=== PATIENT | male | born 1960 | race Caucasian/White ===

== ENCOUNTER → 2021-05-31 10:13 | Outpatient (CLI) | payer OTHER, SELFPAY ==
--- NOTE | ~2021-05-31 | CT_ITS ---
EXAMINATION: CTA chest EXAM DATE: 05/31/2021 11:12 INDICATION: Aortic root dilation. TECHNIQUE: Spiral CT of the chest following intravenous injection of 100 mL Omnipaque 350. Axial, co abril and sagittal images of the chest were reviewed. Maximum intensity projection 3-D reconstruction s of the aorta were created by the technologist on dedicated workstation. Coronal maximum intensity pixel images of chest reviewed. The dose-length product (DLP) for this examination was 641.25 mGy-cm . The exposure was tailored according to patient size (auto mA exposure control), and iterative joshua nstruction (ASIR) was used as additional dose reduction technique. Comparison is made to prior examin ation from 02/24/2014. FINDINGS: The ascending aorta measures 4.6 cm (was 4.0 cm), and the aortic root measures 4.5 cm (was 4.2 cm). No central pulmonary emboli. No aortic dissection. There is a right lower lobe 9 mm nodule which was not present in 2013, and the lateral sulcus. PET/CT or 3 month follow-up chest CT is recomm ended. There is elevated right hemidiaphragm with adjacent subsegmental atelectasis. There is small dissection flap or fenestration of a mildly aneurysmal superior mesenteric artery whic h measures up to 1.1 x 1.5 cm. There are no pleural or pericardial effusions. Tracheobronchial tree is patent. There is no media stinal, hilar or axillary lymphadenopathy. There is no pneumothorax. Heart normal in size. Ther e is mild coronary arterial calcification, arterial sclerosis. Several small liver cysts. There is thoracic spondylosis without osteoblastic or osteolytic lesions identified. IMPRESSION: 1. 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 2. Right lower lobe 9 mm nodule; recommend PET/CT or 3 month follow-up chest CT. I discussed unexpected finding of nodule with Jenny in the office of the ordering clinician Shay Villalba MD at 06/01/2021 09:30 CREPE BOX TENDER, stated she would give the message to him. Reviewed, dictated and finalized at location B. E BOX TENDER IMPRESSION: 1. 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 2. Right lower lobe 9 mm nodule; recommend PET/CT or 3 month follow-up chest C T. I discussed unexpected finding of nodule with Jenny in the office of the [facility] clinician Shay Villalba MD at 06/01/2021 09:30 CREPE BOX TENDER, stated she would give the message to him.
[2021-05-31 10:33] LABS: Estimated Glomerular Filt Rate > 60
== END ==
PROVIDERS: Visit Provider Internal Medicine Cardiovascular Disease
DX: I77.810 Thoracic aortic ectasia (principal)
CPT/HCPCS: 71275; Q9967

== ENCOUNTER → 2021-08-31 15:14 | Outpatient (CLI) | payer OTHER, SELFPAY ==
--- NOTE | ~2021-08-31 | CT_ITS ---
EXAMINATION:CT diagnostic chest wo con DATE: 08/31/2021 15:32 INDICATION: Solitary pulmonary nodule. TECHNIQUE: Computed tomography (CT) of the chest was performed without intravenous contrast. Automate d exposure control and iterative reconstruction technique were employed. The dose-length product (DLP ) was 118.34 mGy-cm. COMPARISON: Chest CT 05/31/2021, 02/24/14 FINDINGS: There is mild scarring at the lung apices. There is mild atelectasis bilaterally. There is mild elevation of right hemidiaphragm. There is a 9 mm nodule in right lung lower lobe. No pleural ef fusion. The heart size is normal. No pericardial effusion. There are coronary artery calcifications. There is ectasia of ascending aorta measuring 4.4 cm. There is diffuse hepatic steatosis. There is mo derate thoracic spondylosis. IMPRESSION: 1. 9 mm pulmonary nodule, stable from 05/31/2021 and new from 02/24/2014, probably benign. Noncontrast chest CT is recommended in 6 months. Reviewed, dictated and finalized at location A. IMPRESSION: 1. 9 mm pulmonary nodule, stable from 05/31/2021 and new from 02/24/2014, probabl y benign. Noncontrast chest CT is recommended in 6 months.
== END ==
PROVIDERS: PCP Internal Medicine; Visit Provider Internal Medicine
DX: R91.1 Solitary pulmonary nodule (principal)
CPT/HCPCS: 71250

== ENCOUNTER 2022-05-05 11:32 | Emergency (ER) | payer BC, SELFPAY ==
--- NOTE | ~2022-05-05 | XR_ITS ---
EXAMINATION: XR chest 2V DATE: 05/05/2022 12:50 INDICATION: Decreased lung sounds TECHNIQUE: PA and lateral views of the chest are obtained. COMPARISON: 10/27/2013 FINDINGS: The lungs are free of acute opacities. No pleural effusion or pneumothorax. The cardiomedia stinal silhouette is normal. There is mild thoracic spondylosis. IMPRESSION: 1. No acute cardiopulmonary abnormality. Reviewed, dictated and finalized at location A. ENT ACCOUNTS CLERK
[2022-05-05 11:56] VITALS: BP 105/74; PULSE 86; RESP 18; TEMP 36.8; O2SAT 99
--- NOTE | 2022-05-05 12:29 | ED.GENADULT ---
HPI - General Adult General Chief complaint: Upper Respiratory Infection Stated complaint: flu like symptoms Time Seen by Provider: 05/05/22 12:29 Source: patient Mode of arrival: ambulatory Limitations: no limitations History of Present Illness HPI narrative: 62-year-old male patient presents to the [facility] with complaints of cold symptoms for the past 4 weeks. Patient states he has had a cough, congestion, body aches, chills and feeling very tired. Patient states he thought he was getting better last week and can then continues to have symptoms this week that he feels that it is worsening. 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 Related Data Home Medications Medication Instructions Recorded Confirmed sildenafil 25 mg tablet 25 mg PO DAILY PRN 03/17/19 12/19/21 tamsulosin 0.4 mg capsule 0.4 mg PO DAILY 03/17/19 12/19/21 amlodipine 5 mg tablet 5 mg PO DAILY 08/12/20 12/19/21 fenofibrate nanocrystallized 145 tablet PO 06/05/21 12/19/21 mg tablet metoprolol succinate 50 mg 50 mg PO DAILY 06/05/21 12/19/21 tablet,extended release 24 hr Allergies Allergy/AdvReac Type Severity Reaction Status Date / Time chlorpheniramine Allergy Mild SWELL Verified 12/19/21 14:21 PROSTATE phenylephrine Allergy Mild SWELL Verified 12/19/21 14:21 PROSTATE phenylpropanolamine Allergy Mild SWELL Verified 12/19/21 14:21 PROSTATE phenyltoloxamine Allergy Mild SWELL Verified 12/19/21 14:21 PROSTATE Sulfa (Sulfonamide Allergy Mild Diarrhea Verified 12/19/21 14:21 Antibiotics) Review of Systems Review of Systems: CONSTITUTIONAL: Positive subjective fever, chills, and sweats. EYES: Denies visual changes, redness, or discharge. ENT: Denies rhinorrhea, positive congestion, denies sore throat, or otalgia. CARDIOVASCULAR: Denies chest pain, palpitations, or edema. RESPIRATORY: positive cough withdyspnea. GASTROINTESTINAL: Denies abdominal pain, nausea, vomiting, or diarrhea. GENITOURINARY: Denies dysuria or hematuria. SKIN: Denies rash or itching. MUSCULOSKELETAL: Denies back pain, joint pain, positive myalgia. NEUROLOGIC: Denies headache, numbness, or weakness. PSYCHIATRIC: Denies anxiety or depression. [facility] Past Medical History Medical History Aortic root dilation Cardiac disorder stress test 2011, echo, heart mildly enlarged, mild dyspnea only to the cardiac catheterization Cervical radiculopathy Chronic otitis externa of left ear COPD (chronic obstructive pulmonary disease) Degenerative disc disease L5 herniated, L2 through 4 bulging disc Dyslipidemia Erythrocytosis Gastroesophageal reflux disease Hypertension, benign Hypertriglyceridemia Hypogonadism in male Hypovitaminosis D Incidental lung nodule, greater than or equal to 8mm JEFF (obstructive sleep apnea) Surgical History Surgical History H/O Spinal surgery Hx of tonsillectomy Family History Family History Mother Patient's mother is in good health Father Carcinoma of colon Other Diabetes mellitus Family history of arthritis Family history of cardiovascular disease Social History Social History Smoking packs per day: 1 Smoking cigarettes per day: 20.0 Years smoked: 20 Smoking pack-years: 20.00 Smoking status: Former smoker Tobacco type: cigarettes Second hand tobacco smoke exposure: No Smoking end date: 04/01/95 Alcohol intake: current Alcohol use details: social Substance use: never Substance use type: does not use Comments At the time of my signature I agree with nursing past medical history, surgical, social, and family history. There is no relevant family history pertinent to the presenting complaint. Exam Narrative:
[2022-05-05] MEDS: ALBUTEROL SULFATE NEB 2.5 MG/3 ML INH INHALATION (13:02)
[2022-05-05] MEDS: IPRATROPIUM BR 0.02% INH SOLN 0.5 MG/2.5 ML VIAL INHALATION (13:02)
== END 2022-05-05 14:00 | disposition home or self-care (01) ==
PROVIDERS: Emergency Provider Nurse Practitioner Family; PCP Internal Medicine
DX: J40 Bronchitis, not specified as acute or chronic (principal); I10 Essential (primary) hypertension; E78.5 Hyperlipidemia, unspecified; J44.9 Chronic obstructive pulmonary disease, unspecified; Z87.891 Personal history of nicotine dependence; Z20.822 Contact with and (suspected) exposure to COVID-19
CPT/HCPCS: 71046; 87426; 94640; 99213; C9803; G0463

== ENCOUNTER 2022-06-02 14:35 | Emergency (ER) | payer BC, SELFPAY ==
[2022-06-02 14:54] VITALS: BP 115/81; PULSE 91; RESP 16; TEMP 36.6; O2SAT 97
--- NOTE | 2022-06-02 14:58 | ED.GENADULT ---
HPI - General Adult General Chief complaint: Upper Respiratory Infection Stated complaint: cough Time Seen by Provider: 06/02/22 14:58 Source: patient Mode of arrival: ambulatory Limitations: no limitations History of Present Illness HPI narrative: 62-year-old male patient presents to the [facility] with complaints of cough, body aches, chills, congestion and just overall not feeling well. Patient states he was seen here May 06 and when he was seen here on May 06 he had been sick for about 4 weeks. Patient states that they did a chest x-ray did not see any pneumonia, tested him for COVID which was negative as well as give him a breathing treatment. Patient states they were not able to send him home with an albuterol inhaler due to taking beta-blockers for his heart. Patient states that the steroids they prescribed him did help until he stopped taking them then the symptoms return. Patient states he continues to take the Tessalon Perles to help with the coughing but continues to have symptoms. Denies chest pain states does have shortness of breath at times especially when coughing. Related Data Home Medications Medication Instructions Recorded Confirmed sildenafil 25 mg tablet 25 mg PO DAILY PRN 03/17/19 12/19/21 tamsulosin 0.4 mg capsule 0.4 mg PO DAILY 03/17/19 12/19/21 amlodipine 5 mg tablet 5 mg PO DAILY 08/12/20 12/19/21 fenofibrate nanocrystallized 145 tablet PO 06/05/21 12/19/21 mg tablet metoprolol succinate 50 mg 50 mg PO DAILY 06/05/21 12/19/21 tablet,extended release 24 hr Allergies Allergy/AdvReac Type Severity Reaction Status Date / Time chlorpheniramine Allergy Mild SWELL Verified 06/02/22 14:53 PROSTATE phenylephrine Allergy Mild SWELL Verified 06/02/22 14:53 PROSTATE phenylpropanolamine Allergy Mild SWELL Verified 06/02/22 14:53 PROSTATE phenyltoloxamine Allergy Mild SWELL Verified 06/02/22 14:53 PROSTATE Sulfa (Sulfonamide Allergy Mild Diarrhea Verified 06/02/22 14:53 Antibiotics) Review of Systems Review of Systems: CONSTITUTIONAL: Denies fever, chills, or sweats. EYES: Denies visual changes, redness, or discharge. ENT: Positive rhinorrhea, congestion, sore throat, or otalgia. CARDIOVASCULAR: Denies chest pain, palpitations, or edema. RESPIRATORY: positive cough , intermittent dyspnea. GASTROINTESTINAL: Denies abdominal pain, nausea, vomiting, or diarrhea. GENITOURINARY: Denies dysuria or hematuria. SKIN: Denies rash or itching. MUSCULOSKELETAL: Denies back pain, joint pain, or myalgia. NEUROLOGIC: Denies headache, numbness, or weakness. PSYCHIATRIC: Denies anxiety or depression. [facility] Past Medical History Medical History Aortic root dilation Cardiac disorder stress test 2011, echo, heart mildly enlarged, mild dyspnea only to the cardiac catheterization Cervical radiculopathy Chronic otitis externa of left ear COPD (chronic obstructive pulmonary disease) Degenerative disc disease L5 herniated, L2 through 4 bulging disc Dyslipidemia Erythrocytosis Gastroesophageal reflux disease Hypertension, benign Hypertriglyceridemia Hypogonadism in male Hypovitaminosis D Incidental lung nodule, greater than or equal to 8mm JEFF (obstructive sleep apnea) Surgical History Surgical History H/O Spinal surgery Hx of tonsillectomy Family History Family History Mother Patient's mother is in good health Father Carcinoma of colon Other Diabetes mellitus Family history of arthritis Family history of cardiovascular disease Social History Social History Smoking packs per day: 1 Smoking cigarettes per day: 20.0 Years smoked: 20 Smoking pack-years: 20.00 Smoking status: Former smoker Tobacco type: cigarettes Second hand tobacco
--- NOTE | 2022-06-02 15:16 | ECG_ITS ---
Measurements Intervals [place] Rate: 86 P: 258 IN: 152 QRS: 1 QRSD: 87 T: 138 QT: 339 QTc: 406 Interpretive Statements ECTOPIC ATRIAL RHYTHM CANNOT RULE OUT SEPTAL INFARCT, AGE INDETERMINATE ST-T WAVE ABNORMALITY IN LAT/HIGH LAT LEADS- CONSIDER ISCHEMIA ABNORMAL ECG NO PREVIOUS ECG AVAILABLE FOR COMPARISON Electronically Signed On 06-03-2022 14:27:07 MANAGER BUSINESS SYSTEMS by Joao Salinas D.O.
== END 2022-06-02 15:45 | disposition home or self-care (01) ==
PROVIDERS: Emergency Provider Nurse Practitioner Family; PCP Internal Medicine
DX: J06.9 Acute upper respiratory infection, unspecified (principal); R94.31 Abnormal electrocardiogram [ECG] [EKG]; Z87.891 Personal history of nicotine dependence; J44.9 Chronic obstructive pulmonary disease, unspecified; E78.5 Hyperlipidemia, unspecified; K21.9 Gastro-esophageal reflux disease without esophagitis; I10 Essential (primary) hypertension; E78.1 Pure hyperglyceridemia
CPT/HCPCS: 93005; 99213; G0463

== ENCOUNTER → 2022-06-14 16:12 | Outpatient (CLI) | payer BC, SELFPAY ==
--- NOTE | ~2022-06-14 | XR_ITS ---
EXAMINATION: XR chest 2V 06/14/2022 16:28 INDICATION: Chronic cough PROCEDURE: 2 view chest COMPARISON: 05/05/2022 FINDINGS: there are interstitial infiltrates in the lower lobes which may represent atelectasis or de veloping pneumonia. No significant effusion, edema or pneumothorax. The lungs are hyperinflated which is consistent with, but not diagnostic of chronic obstructive pulmonary disease. IMPRESSION: 1: Interstitial infiltrates of the lower lobes which may represent atelectasis or developing pneumon ia. Reviewed, dictated and finalized at location A. IMPRESSION: 1: Interstitial infiltrates of the lower lobes which may represent atelectasis or developing pneumonia.
== END ==
PROVIDERS: PCP Internal Medicine; Visit Provider Nurse Practitioner Family
DX: R05.3 Chronic cough (principal); R91.8 Other nonspecific abnormal finding of lung field
CPT/HCPCS: 71046

== ENCOUNTER 2023-02-04 01:01 | Day surgery (SDC) | payer BC, SELFPAY ==
[2023-01-23 15:37] VITALS: BMI 27.0
--- NOTE | 2023-02-01 09:48 | SUR.PREOP ---
Patient called regarding upcoming procedure. Reviewed preop instructions, appointment times, and procedure prep.
[2023-02-04 06:29] VITALS: BP 123/84; PULSE 72; RESP 16; TEMP 35.9; O2SAT 98
[2023-02-04] MEDS: LACTATED RINGERS 1,000 ML 150 ML IV CONT (06:37)
--- NOTE | 2023-02-04 07:25 | P.PNAN_ITS ---
Anes - Initial Pre Proc Eval Procedure: Operation Date: 02/04/23 07:30 Proposed Procedures p Screening Colonoscopy - Pablo Disla MD Date/Time: 02/04/23 07:25 Surgeon: Pablo Disla MD Pre Op Diagnosis: neoplasm screening Patient Data Age: 62 Gender: M Height: 1.75 m Weight: 79.4 kg Last Vital Signs Temp 96.6 F L 02/04/23 06:29 Pulse 72 02/04/23 06:29 Resp 16 02/04/23 06:29 BP 123/84 02/04/23 06:29 Pulse Ox 98 02/04/23 06:29 O2 Del Method Room Air 02/04/23 06:29 Allergies Allergy/AdvReac Type Severity Reaction Status Date / Time chlorpheniramine Allergy Mild SWELL Verified 02/04/23 06:25 PROSTATE phenylephrine Allergy Mild SWELL Verified 02/04/23 06:25 PROSTATE phenylpropanolamine Allergy Mild SWELL Verified 02/04/23 06:25 PROSTATE phenyltoloxamine Allergy Mild SWELL Verified 02/04/23 06:25 PROSTATE Sulfa (Sulfonamide Allergy Mild Diarrhea Verified 02/04/23 06:25 Antibiotics) Home Medications Medication Instructions Recorded Confirmed Type sildenafil 25 mg tablet 25 mg PO DAILY PRN Erectile 03/17/19 02/04/23 History Dysfunction tamsulosin 0.4 mg capsule 0.4 mg PO DAILY 03/17/19 02/04/23 History amlodipine 5 mg tablet 5 mg PO DAILY 08/12/20 02/04/23 History fenofibrate nanocrystallized 145 1 tablet PO DAILY 06/05/21 02/04/23 History mg tablet metoprolol succinate 50 mg 50 mg PO DAILY 06/05/21 02/04/23 History tablet,extended release 24 hr ascorbate calcium (vitamin C) 500 500 mg PO DAILY 10/23/22 02/04/23 History mg tablet cetirizine 10 mg tablet (Zyrtec) 10 mg PO BID 10/23/22 02/04/23 History cholecalciferol (vitamin D3) 125 125 mcg PO DAILY 10/23/22 02/04/23 History mcg (5,000 unit) capsule fluticasone propionate 50 2 spray intranasal DAILY 10/23/22 02/04/23 History mcg/actuation nasal spray,suspension (Allergy Relief (fluticasone)) spironolactone 25 mg tablet 25 mg PO DAILY 10/23/22 02/04/23 History testosterone 50 mg/5 gram (1 %) 1 tube transdermal QAM 10/23/22 02/04/23 History transdermal gel oxycodone-acetaminophen 5 mg-325 1 tablet PO Q6H PRN pain #30 tabs 12/04/22 02/04/23 Rx mg tablet (Percocet) Patient hx anesthesia problems: none Family hx anesthesia problems: none Results Review: All pre-operative results and documents have been reviewed as part of the pre- operative evaluation. [facility] Past Medical History Medical History Aortic root dilation Cardiac disorder stress test 2011, echo, heart mildly enlarged, mild dyspnea only to the cardiac catheterization Cervical radiculopathy Chronic otitis externa of left ear COPD (chronic obstructive pulmonary disease) Degenerative disc disease L5 herniated, L2 through 4 bulging disc Dyslipidemia Erythrocytosis Gastroesophageal reflux disease Hypertension, benign Hypertriglyceridemia Hypogonadism in male Hypovitaminosis D Incidental lung nodule, greater than or equal to 8mm JEFF (obstructive sleep apnea) Post-nasal drip Surgical History Surgical History (Reviewed 12/25/22 @ 15:35 by Jake
--- NOTE | 2023-02-04 07:26 | PM.HPGS ---
History of Present Illness History of Present Illness Consent: Risks, benefits, and alternatives have been discussed and questions answered. Patient agrees to proceed with procedure. Chief complaint: Family history of colon cancer Narrative: Greyson Puckett is a 62 year old male presents for screening colonoscopy. Patient's current weight appetite and bowel movements are normal. Patient denies abdominal pain. He has had no bleeding. Family history is significant that his father had colon cancer. Patient is previous exam was unremarkable several years ago. Small benign mucosal polyp was removed not felt to be of cancer risk. Review of Systems Review of Systems: Review of systems noncontributory. [facility] Past Medical History Medical History Aortic root dilation Cardiac disorder stress test 2011, echo, heart mildly enlarged, mild dyspnea only to the cardiac catheterization Cervical radiculopathy Chronic otitis externa of left ear COPD (chronic obstructive pulmonary disease) Degenerative disc disease L5 herniated, L2 through 4 bulging disc Dyslipidemia Erythrocytosis Gastroesophageal reflux disease Hypertension, benign Hypertriglyceridemia Hypogonadism in male Hypovitaminosis D Incidental lung nodule, greater than or equal to 8mm JEFF (obstructive sleep apnea) Post-nasal drip Surgical History Surgical History H/O Spinal surgery Hx of tonsillectomy Family History Family History Mother Patient's mother is in good health Father Carcinoma of colon Other Diabetes mellitus Family history of arthritis Family history of cardiovascular disease Social History Social History Social History: Caffeine-tea/soda Smoking packs per day: 0.5 Smoking cigarettes per day: 10.0 Years smoked: 20 Smoking pack-years: 10.00 Smoking status: Former smoker Tobacco type: cigarettes Second hand tobacco smoke exposure: No Smoking end date: 04/01/95 Alcohol intake: current Drinks per week: 1 Alcohol use details: social Substance use: never Substance use type: does not use Lack of Transportation: No Lack of Food: Never True Current Housing: I Have Housing Concerned About Future Housing: No Difficulty Paying Gas/Electric Bills: No Difficulty Paying for Meds: No Currently Unemployed: No Education: Trade/Vocational Certificate Difficulty w/ Childcare or Family Care: No Living arrangements: with friend(s) Spiritual care concerns: No Meds Home Medications and Allergies Home Medications Medication Instructions Recorded Confirmed Type sildenafil 25 mg tablet 25 mg PO DAILY PRN Erectile 03/17/19 02/04/23 History Dysfunction tamsulosin 0.4 mg capsule 0.4 mg PO DAILY 03/17/19 02/04/23 History amlodipine 5 mg tablet 5 mg PO DAILY 08/12/20 02/04/23 History fenofibrate nanocrystallized 145 1 tablet PO DAILY 06/05/21 02/04/23 History mg tablet metoprolol succinate 50 mg 50 mg PO DAILY 06/05/21 02/04/23 History tablet,extended release 24 hr ascorbate calcium (vitamin C) 500 500 mg PO DAILY 10/23/22 02/04/23 History mg tablet cetirizine 10 mg tablet (Zyrtec) 10 mg PO BID 10/23/22 02/04/23 History cholecalciferol (vitamin D3) 125 125 mcg PO DAILY 10/23/22 02/04/23 History mcg (5,000 unit) capsule fluticasone propionate 50 2 spray intranasal DAILY 10/23/22 02/04/23 History mcg/actuation nasal spray,suspension (Allergy Relief (fluticasone)) spironolactone 25 mg tablet 25 mg PO DAILY 10/23/22 02/04/23 History testosterone 50 mg/5 gram (1 %) 1 tube transdermal QAM 10/23/22 02/04/23 History transdermal gel oxycodone-acetaminophen 5 mg-325 1 tablet PO Q6H PRN pain #30 tabs 12/04/22 02/04/23 Rx mg tablet (Percocet)
[2023-02-04 07:47] VITALS: BP 118/80; PULSE 79; RESP 21; O2SAT 99
[2023-02-04 07:57] VITALS: BP 123/90; PULSE 75; RESP 28; O2SAT 98
[2023-02-04 08:07] VITALS: BP 131/98; PULSE 62; RESP 19; O2SAT 99
== END 2023-02-04 08:29 | disposition home or self-care (01) ==
PROVIDERS: PCP Emergency Medicine; Visit Provider Internal Medicine Gastroenterology
PROC: 0DJD8ZZ Inspection of Lower Intestinal Tract, Via Natural or Artificial Opening Endoscopic (ICD-10-PCS; CPT 45378; principal; 2023-02-04 07:30)
DX: Z12.11 Encounter for screening for malignant neoplasm of colon (principal); D12.4 Benign neoplasm of descending colon; K64.8 Other hemorrhoids; N52.9 Male erectile dysfunction, unspecified; I10 Essential (primary) hypertension; J44.9 Chronic obstructive pulmonary disease, unspecified; R09.82 Postnasal drip; K21.9 Gastro-esophageal reflux disease without esophagitis; G47.33 Obstructive sleep apnea (adult) (pediatric); E29.1 Testicular hypofunction; E55.9 Vitamin D deficiency, unspecified; Z87.891 Personal history of nicotine dependence; F10.90 Alcohol use, unspecified, uncomplicated; Z79.52 Long term (current) use of systemic steroids; Z79.899 Other long term (current) drug therapy; Z79.891 Long term (current) use of opiate analgesic; Z80.0 Family history of malignant neoplasm of digestive organs
CPT/HCPCS: 45385; 88305; J2704; J7120

== ENCOUNTER 2023-02-27 14:51 | Outpatient (CLI) | payer BC, SELFPAY ==
--- NOTE | ~2023-02-27 | CT_ITS ---
EXAMINATION: CTA chest DATE: 02/27/2023 15:20 INDICATION: Aortic root dilatation. TECHNIQUE: Computed tomographic angiography (CTA) of the chest was performed with 100 mL Omnipaque-35 0 intravenous contrast. Automated exposure control and iterative reconstruction technique were employ ed. The dose-length product was 392.32 mGy-cm. Maximum intensity projection 3D-reconstructions of the aorta and other arteries were constructed by the technologist on a separate workstation. COMPARISON: Chest CT 08/31/2021 FINDINGS: There is mild scarring at the lung apices. There is mild atelectasis bilaterally. There is an 11 mm nodule in right lower lobe. No pleural effusion. The heart size is normal. There are coronar y artery calcifications. No pericardial effusion. The aorta measures 4.6 cm at the sinuses of Valsalv a, 3.6 cm at the sinotubular junction, 4.1 cm in the mid descending aorta, 3.0 cm at the aortic isthm us, and 3.0 cm in the mid descending aorta. Aortic atherosclerosis is noted. There is a 9 mm cyst in the liver. There is mild thoracic spondylosis. There is mild chronic height loss of multiple vertebra l bodies. IMPRESSION: 1. Ectasia of ascending aorta measuring 4.6 cm of the sinuses of Valsalva. 2. 11 mm pulmonary nodule, increased from 9 mm on 08/31/2021. This finding is suspicious for primary br onchogenic carcinoma. CT-guided biopsy is recommended. Reviewed, dictated and finalized at location A. OR DIRECTOR MARKETING IMPRESSION: 1. Ectasia of ascending aorta measuring 4.6 cm of the sinuses of Valsalva. 2. 11 mm pulmonary nodule, increased from 9 mm on 08/31/2021. This finding is alec picious for primary bronchogenic carcinoma. CT-guided biopsy is recommended.
[2023-02-27 15:15] LABS: Estimated Glomerular Filt Rate 44
== END 2023-02-27 14:52 | disposition home or self-care (01) ==
LOC: ANHIMG 14:55
PROVIDERS: PCP Emergency Medicine; Visit Provider Internal Medicine Cardiovascular Disease
DX: I77.810 Thoracic aortic ectasia (principal); R91.1 Solitary pulmonary nodule
CPT/HCPCS: 71275; Q9967

== ENCOUNTER 2023-04-19 14:48 | Outpatient (CLI) | payer BC, SELFPAY ==
--- NOTE | 2023-04-22 09:43 | WPDPFTINT ---
PFT Procedure Performed PFT Procedure Performed Spirometry with Pre/Post Bronchodilator Plethysmography (Lung Vol) Diffusing Cap (DLCO) Flow Vol Loop PFT Interpretation The interpretation of the pulmonary function test was based on the latest ERS/ATS guidelines. Lung volumes, measured using body plethysmography, were within normal limits. The spirometry revealed an FEV1 to FVC ratio of 69%, which is above the lower limit of normal for this patient, indicating normal spirometry in the context of a normal forced vital capacity. There was no significant increase in expiratory flow rates after bronchodilator administration. The lung diffusion capacity was 18.9 mL/min/mmHg, which is 69% of the predicted value and below the lower limit of normal. The calculated alveolar volume was within the normal range, suggesting that the reduced lung diffusion capacity could be due to a pulmonary vascular abnormality, emphysema with preserved lung volumes, or anemia. Clinical correlation is recommended. Impression. Spirometry and lung volumes within normal range. Mild reduction in lung diffusion capacity.
--- NOTE | 2023-04-22 10:25 | WPDSIXMINUTE ---
Six Minute Walk Procedure Procedure Performed Pulmonary Stress Test (6 min walk) Six Minute Walk Six Minute Walk: This 6 minute walk test was carried out with the patient breathing ambient air. The baseline pre walk oxyhemoglobin saturation was 95%; the patient walked 396 m with no stops during testing. During the walk the oxyhemoglobin saturation remained in the range of 93% to 95%. Impression: No evidence of oxyhemoglobin desaturation on this testing.
== END 2023-04-19 14:49 | disposition home or self-care (01) ==
PROVIDERS: PCP Emergency Medicine; Visit Provider Physician Assistant
DX: R06.02 Shortness of breath (principal)
CPT/HCPCS: 94060; 94618; 94726; 94729

== ENCOUNTER 2023-04-24 08:44 | Outpatient (CLI) | payer BC, SELFPAY ==
--- NOTE | 2023-04-16 15:10 | PC.NURSE ---
Pre Radiology instructions Report to the outpatient [facility] on date 04/24/23 at time 0900 for procedure Time: 1100. YOU MAY BE MONITORED AT HOSPITAL FOR UP TO 4 HOURS AFTER YOUR PROCEDURE. A visitor will be allowed to accompany the patient into the hospital. You and your visitor will be asked to self-screen and do not enter if you have any COVID symptoms. A mask is OPTIONAL within the hospital. Patients are to have no food or drink 6 hours prior to procedure time Driving will be restricted after the procedure, you must have a person to drive you home. Labs will be drawn in preop area and once reviewed, you will be taken to radiology area for procedure. When the procedure is completed, you will be taken to outpatient where you will be monitored for several hours. You may have one visitor in this area. Other than holding anti-coagulants, patient may take other medication(s) as scheduled. Prior to your appointment date patients are instructed to hold anti-coagulants after discussing with ordering provider to stop. If unable to discontinue anti-coagulants please notify radiologist. ? No aspirin or warfarin (Coumadin) for 7 days prior to the procedure. ? No clopidogrel (Plavix), ticagrelor (Brilinta), prasugrel (Effient) or dabigatran (Pradaxa) for 5 days prior to the procedure. ? No rivaroxaban (Xarelto), apixaban (Eliquis), dipyridamole (Aggrenox or Persantine) or cilostazol (Pletal) for 2 days prior to the procedure. Medications to discontinue per physician: N/A Date to take last dose: N/A Please leave all valuables, including medications, at home the day of procedure. The hospital will not accept responsibility for valuables. Wear comfortable, loose fitting clothing.? Follow any additional instructions given to you from ordering provider. Telephone instructions given to FAWAD KIMBLE and asked if any additional questions and then verbalized understanding. Patient advised to call scheduling provider office or registration scheduling [phone] if any additional questions.
[2023-04-24] VITALS (10 sets, daily range): BP systolic 103–136; BP diastolic 73–89; PULSE 58–72; RESP 16–18; TEMP 36.6; O2SAT 97–100; BMI 24.6
--- NOTE | ~2023-04-24 | CT_ITS ---
EXAMINATION: CT biopsy lung w/imaging DATE: 04/24/2023 11:58 INDICATION: Enlarging right lower lobe lung nodule TECHNIQUE: The procedure including the risks and benefits was discussed with the patient. Risks discu ssed included infection, approximately 1/20 risk of symptomatic hemorrhage beyond mild hemoptysis, ap proximately 1/3 risk of pneumothorax, and approximately 1/10 risk of pneumothorax severe enough to wa rrant chest tube placement. The patient understood the risks and agreed to proceed. The patient was p laced on. The skin overlying the posterior inferior right hemithorax was prepped and draped in steri le fashion. Anesthetic was administered with 1% lidocaine subcutaneously. A 19 gauge outer needle w as advanced under CT guidance to the lesion of interest. A 20 gauge core biopsy needle was then used to obtain 7 core biopsy specimens. The needle was removed and the entry site was cleaned and dressed. There were no immediate complications. The dose-length product was 205.08 mGy-cm. FINDINGS: CT images demonstrate the outer needle tip adjacent to the periphery of an 11 [address] smooth [address] nd nodule at the posterior sulcus of the right lower lobe. When the final images demonstrates the bio psy needle extending through the nodule. IMPRESSION: 1. Successful CT-guided biopsy of the 11 mm right lower lobe nodule of concern. Reviewed, dictated and finalized at location A. H FLAKER
--- NOTE | ~2023-04-24 | XR_ITS ---
EXAMINATION: XR chest 1V portable DATE: 04/24/2023 14:42 INDICATION: Status post percutaneous right lung biopsy. TECHNIQUE: frontal view of the chest was obtained. COMPARISON: Chest radiograph dated 04/24/2023 at 12:57 PM FINDINGS: Mild linear discoid atelectasis at the medial left lung base. Small nodular opacity corresponding to the biopsied lesion in the right lower lobe projecting over the right hemidiaphragm. No other airspac e opacities, pulmonary edema, pleural effusion or pneumothorax. The cardiomediastinal silhouette is n ormal. IMPRESSION: 1. No pneumothorax or other acute cardiopulmonary disease post percutaneous biopsy of an indeterminat e right lower lobe nodule. Reviewed, dictated and finalized at location A. SERVICE EMPLOYEE IMPRESSION: 1. No pneumothorax or other acute cardiopulmonary disease post percutaneous bio psy of an indeterminate right lower lobe nodule.
--- NOTE | ~2023-04-24 | XR_ITS ---
EXAMINATION: XR chest 1V DATE: 04/24/2023 11:55 INDICATION: Status post percutaneous right lung biopsy TECHNIQUE: frontal view of the chest was obtained. COMPARISON: Chest radiograph dated 06/14/2022 FINDINGS: Subtle nodular opacity projecting over the right hemidiaphragm corresponding to the density nodule an d likely small amount of surrounding postbiopsy hemorrhage. Remainder of the lungs are clear. No pulm onary edema, pleural effusion or pneumothorax. The cardiomediastinal silhouette is normal. IMPRESSION: 1. Expected small amount of pulmonary hemorrhage surrounding the biopsied right lower lobe nodule. No pneumothorax or pleural effusion. Reviewed, dictated and finalized at location A. NCED MANUFACTURING ENGINEER
--- NOTE | ~2023-04-24 | XR_ITS ---
EXAMINATION: XR chest 1V portable DATE: 04/24/2023 13:02 INDICATION: Status post percutaneous right lung biopsy TECHNIQUE: frontal view of the chest was obtained. COMPARISON: Chest radiograph dated 04/24/2023 FINDINGS: The prior pulmonary hemorrhage has resolved around the biopsied right lower lobe nodule which project s over the right hemidiaphragm. No new airspace opacities, pulmonary edema, pleural effusion or pneum othorax. The cardiomediastinal silhouette is normal. IMPRESSION: 1. No pneumothorax or other acute cardiopulmonary disease post percutaneous biopsy of indeterminate r ight lower lobe nodule. Reviewed, dictated and finalized at location A. WARE IMPLEMENTATION PROJECT MANAGER IMPRESSION: 1. No pneumothorax or other acute cardiopulmonary disease post percutaneous bio psy of indeterminate right lower lobe nodule.
[2023-04-24 09:22] LABS: Mean Platelet Volume 10.1 fl (7.4-10.4); Platelet Count Result 196 k/mm3 (150-375)
[2023-04-24 09:32] LABS: Prothrombin Time 13.8 Seconds (11.1-14.7)
[2023-04-24 09:33] LABS: Partial Thromboplastin Time 27.1 SECONDS (22.3-36.8)
== END 2023-04-24 15:03 | disposition home or self-care (01) ==
PROVIDERS: PCP Emergency Medicine; Referring Provider Physician Assistant; Visit Provider Radiology Diagnostic Radiology
PROC: BB24ZZZ Computerized Tomography (CT Scan) of Bilateral Lungs (ICD-10-PCS; CPT 32408; principal; 2023-04-24 11:00)
DX: Z01.818 Encounter for other preprocedural examination (principal); R91.1 Solitary pulmonary nodule; R91.8 Other nonspecific abnormal finding of lung field; J84.10 Pulmonary fibrosis, unspecified
CPT/HCPCS: 32408; 36415; 71045; 85049; 85610; 85730; 88305; 88342

== ENCOUNTER 2023-11-18 16:08 | Emergency (ER) | payer BC, SELFPAY ==
--- NOTE | ~2023-11-18 | XR_ITS ---
XR hand RT min 3V Ordering provider: Ignacia Caal APRN History: . Smashed hand at [facility]. Hematoma over 4th/5th metacarpal . Comparison: None. FINDINGS: BONES: No acute fracture or dislocation. JOINT SPACES: Osteoarthritic changes of the first and second metacarpophalangeal joint SOFT TISSUES: Normal. IMPRESSION: No acute osseous abnormality right hand. Reviewed, dictated and finalized at location A.
[2023-11-18 16:47] VITALS: BP 105/75; PULSE 71; RESP 18; TEMP 36.4; O2SAT 98
[2023-11-18 16:54] VITALS: BP 105/75; PULSE 71; RESP 18; TEMP 36.4; O2SAT 98
--- NOTE | 2023-11-18 16:59 | ED.UPPEXIN ---
HPI - Extremity Injury (Upper) General Chief Complaint: Extremity Injury, Upper Stated Complaint: RT Hand injury Time Seen by Provider: 11/18/23 17:00 Source: patient, RN notes reviewed and old records reviewed Mode of arrival: ambulatory Limitations: no limitations History of Present Illness HPI narrative: 63-year-old male presents to the [facility] with right hand contusion. States that he was emptying a garbage can when the garbage can hit his hand against a dumpster. Small abrasions noted. Full range of motion noted MD complaint: injury to: right and hand Related Data Home Medications Medication Instructions Recorded Confirmed sildenafil 25 mg tablet 25 mg PO DAILY PRN Erectile 03/17/19 11/18/23 Dysfunction tamsulosin 0.4 mg capsule 0.4 mg PO DAILY 03/17/19 11/18/23 amlodipine 5 mg tablet 5 mg PO DAILY 08/12/20 11/18/23 fenofibrate nanocrystallized 145 1 tablet PO DAILY 06/05/21 11/18/23 mg tablet metoprolol succinate 50 mg 50 mg PO DAILY 06/05/21 11/18/23 tablet,extended release 24 hr ascorbate calcium (vitamin C) 500 500 mg PO DAILY 10/23/22 11/18/23 mg tablet cetirizine 10 mg tablet (Zyrtec) 10 mg PO BID 10/23/22 11/18/23 cholecalciferol (vitamin D3) 125 125 mcg PO DAILY 10/23/22 11/18/23 mcg (5,000 unit) capsule fluticasone propionate 50 2 spray intranasal DAILY 10/23/22 11/18/23 mcg/actuation nasal spray,suspension (Allergy Relief (fluticasone)) spironolactone 25 mg tablet 25 mg PO DAILY 10/23/22 11/18/23 testosterone 50 mg/5 gram (1 %) 1 tube transdermal QAM 10/23/22 11/18/23 transdermal gel Allergies Allergy/AdvReac Type Severity Reaction Status Date / Time chlorpheniramine AdvReac Intermediate SWELL Verified 11/18/23 16:54 PROSTATE phenylephrine AdvReac Intermediate SWELL Verified 11/18/23 16:54 PROSTATE phenylpropanolamine AdvReac Intermediate SWELL Verified 11/18/23 16:54 PROSTATE phenyltoloxamine AdvReac Intermediate SWELL Verified 11/18/23 16:54 PROSTATE Sulfa (Sulfonamide AdvReac Intermediate Diarrhea Verified 11/18/23 16:54 Antibiotics) Review of Systems Review of Systems: All systems reviewed & are unremarkable except as noted in HPI and below Constitutional: Constitutional: Reports no additional constitutional complaints Eyes: Eyes: Reports no additional eye complaints ENT: Reports system reviewed and no additional complaints, except as documented Cardiovascular: Cardiovascular: Reports no additional cardiovascular complaints, Denies chest pain and Denies dyspnea Respiratory: Respiratory: Reports no additional respiratory complaints, Denies chest congestion, Denies cough and Denies dyspnea Gastrointestinal: Gastrointestinal: Reports no additional gastrointestinal complaints, Denies abdominal pain, Denies nausea and Denies vomiting Musculoskeletal: Musculoskeletal: Reports as per HPI Integumentary/Breasts: Skin/Breast: Reports system reviewed and no additional complaints, except as docu Neurologic: Reports system reviewed and no additional complaints, except as documented Psychiatric: Psychiatric: Reports no additional psychiatric complaints Allergic/Immunologic: Allergic/Immunologic: Reports no additional allergic/immunologic complaints PMFSH Past Medical History Medical History Aortic root dilation Cardiac disorder stress test 2012, echo, heart mildly enlarged, mild dyspnea only to the cardiac catheterization Cervical radiculopathy Chronic otitis externa of left ear COPD (chronic obstructive pulmonary disease) Cough with congestion of paranasal sinus COVID-19 vaccine series completed Degenerative disc disease L5 herniated, L2 through 4 bulging disc Dyslipidemia Erythrocytosis Gastroesophageal reflux disease Hypertension, benign Hypertriglyceridemia Hypogonadism in male Hypovitaminosis D Incidental lung nodule, greater than or equal to 8mm JEFF (obstructive sleep apnea) Pl
[2023-11-18] MEDS: TETANUS,DIPHTHERIA,AC PERTUSSIS ADULT (0.5 ML) BOOSTRIX IM (17:18)
== END 2023-11-18 17:23 | disposition home or self-care (01) ==
PROVIDERS: Emergency Provider Nurse Practitioner; PCP Emergency Medicine
DX: S60.221A Contusion of right hand, initial encounter (principal); S61.411A Laceration without foreign body of right hand, initial encounter; W22.8XXA Striking against or struck by other objects, initial encounter; Z23 Encounter for immunization; Z87.891 Personal history of nicotine dependence; J44.9 Chronic obstructive pulmonary disease, unspecified; E78.5 Hyperlipidemia, unspecified; K21.9 Gastro-esophageal reflux disease without esophagitis; I10 Essential (primary) hypertension; E78.1 Pure hyperglyceridemia
CPT/HCPCS: 73130; 90471; 90715; 99213; G0463

== ENCOUNTER 2023-12-31 13:22 | Outpatient (CLI) | payer BC, SELFPAY ==
--- NOTE | ~2023-12-31 | CT_ITS ---
EXAMINATION: CTA chest DATE: 12/31/2023 13:52 INDICATION: Aortic root dilatation. TECHNIQUE: Computed tomographic angiography (CTA) of the chest was performed with 100 mL Omnipaque-35 0 intravenous contrast. Automated exposure control and iterative reconstruction technique were employ ed. The dose-length product was 475.94 mGy-cm. Maximum intensity projection 3D-reconstructions of the aorta and other arteries were constructed by the technologist on a separate workstation. COMPARISON: Chest CT 02/27/2023 FINDINGS: The lungs demonstrate mild atelectasis. There is a 9 mm nodule in right lung lower lobe, st able from 08/31/2021. Biopsy on 04/24/2023 was benign. No pleural effusion. There is left atrial enlarge ment of the heart. No pericardial effusion. There are coronary artery calcifications. Thoracic aorta measures 4.2 cm at the sinuses of Valsalva, 3.8 cm at the sinotubular junction, 4.1 cm in the mid asc ending aorta, 3.2 cm at the isthmus, and 2.9 cm in the mid descending aorta. There are cysts in the l iver measuring up to 2.0 cm. There are cysts in right kidney measuring up to 5 mm. There is moderate thoracic spondylosis. IMPRESSION: 1. Ectasia of ascending aorta measuring up to 4.2 cm. Reviewed, dictated and finalized at location A.
[2023-12-31 13:43] LABS: Estimated Glomerular Filt Rate 56
== END 2023-12-31 13:23 | disposition home or self-care (01) ==
LOC: MICIMG 13:24
PROVIDERS: PCP Physician Assistant; Visit Provider Internal Medicine Cardiovascular Disease
DX: I77.810 Thoracic aortic ectasia (principal)
CPT/HCPCS: 71275; Q9967